=== PATIENT | female | born 1980 | race Caucasian/White ===

== ENCOUNTER 2018-05-26 08:43 | Day surgery (SDC) | payer MEDICARE, OTHER ==
[~2018-05-26] VITALS: Ht 175.3 cm; Wt 146.2 kg
[2018-05-26 09:41] VITALS: Ht 175.3 cm; Wt 146.2 kg
[2018-05-26] MEDS ORDERED: LORAZEPAM PO (09:48)
[2018-05-26] MEDS ORDERED: FLUOXETINE PO (09:48)
[2018-05-26] MEDS ORDERED: KEPPRA PO (09:48)
[2018-05-26] MEDS ORDERED: RISPERIDONE PO (09:48)
[2018-05-26] MEDS ORDERED: DOCUSATE SODIUM PO (09:48)
[2018-05-26] MEDS ORDERED: LEVOTHYROXINE PO (09:48)
[2018-05-26 10:04] VITALS: BP 158/67; PULSE 79; RESP 17
[2018-05-26] MEDS ORDERED: FENTAnyl 50 MCG/ML VIAL ONE (10:06)
[2018-05-26] MEDS ORDERED: LIDOCAINE 2% (SDV) 5 ML INJ ONE (10:06)
[2018-05-26] MEDS ORDERED: PROPOFOL 40 ML ONE (10:06)
[2018-05-26] MEDS ORDERED: PROPOFOL 200 MG INJ ONE (10:06)
--- NOTE | 2018-05-26 10:12 | PREAC ---
Date/Time of Note Date/Time of Note DATE: 05/26/18 TIME: 10:09 Anesthesia Eval and Record Evaluation Time Pre-Procedure Interview DATE: 05/26/18 TIME: 10:09 Age 38 Sex female NPO: 8 hrs Preoperative diagnosis DYSPEPSIA Planned procedure EGD WITH BIOPSIES Past Medical History Past Medical History: Includes Endo: Hypothyroid Pulm: Sleep Apnea, Home CPAP Neuro: Seizure disorder GI: Morbid obesity (BMI:47) Psych: Depression, Anxiety Surgery & Anesthesia Issues No known issue Meds Anticoagulation: No Beta Wilmer within 24 hr: No Reason Beta Wilmer not given: Pt. not on B-Wilmer Reported Medications [Lorazepam] No Conflict Check, PO 05/26/18 [Levothyroxine] No Conflict Check, PO 05/26/18 [Docusate Sodium] No Conflict Check, PO 05/26/18 [Risperidone] No Conflict Check, PO 05/26/18 [Fluoxetine] No Conflict Check, PO 05/26/18 [Keppra] No Conflict Check, PO 05/26/18 Meds reviewed: Yes Allergies Coded Allergies: No Known Allergy (Unverified , 05/26/18) Allergies Reviewed: Yes Labs/Studies Labs Reviewed: Reviewed by anesthesiologist test: N/A Pre-procedure Exam Airway: Adequate mouth opening, Adequate thyromental dist Mallampati: Mallampati II Teeth: Normal Lung: Normal Heart: Normal ASA Physical Status ASA physical status: 3 Emergency: None Planned Anesthetic General/MAC: MAC Planned Pain Management Parenteral pain med Pre-operative Attestations Prior to commencing anesthesia and surgery, the patient was re-evaluated, there was verification of: *The patient's identity *The results of appropriate recent lab work and preoperative vital signs *The above evaluation not changing prior to induction *Anesthetic plan, risk benefits, alternative and complications discussed with patient/family; questions answered; patient/family understands, accepts and wishes to proceed. Phi Galicia M.D. May 26, 2018 10:12
[2018-05-26] MEDS ORDERED: HYDROmorphONE 1 MG/5 ML IV SYRINGE IV PRN ×3 (10:30)
[2018-05-26] MEDS ORDERED: LABETALOL HCL 20MG INJ IV PRN (10:30)
[2018-05-26] MEDS ORDERED: EPHEDrine SULFATE 50 MG/5 ML SYG IV PRN (10:30)
[2018-05-26] MEDS ORDERED: MEPERIDINE 25 MG INJ IV PRN (10:30)
[2018-05-26] MEDS ORDERED: FENTAnyl 50 MCG/ML VIAL IV PRN ×3 (10:30)
[2018-05-26] MEDS ORDERED: IPRATROPIUM (NEB) 0.5 MG/2.5 ML AMP HHN PRN (10:30)
[2018-05-26] MEDS ORDERED: ALBUTEROL 0.083% (NEB) 2.5 MG/3 ML AMP HHN PRN (10:30)
[2018-05-26] MEDS ORDERED: OXYCODONE/ACETAMINOPHEN (5/325) TAB PO PRN ×2 (10:30)
[2018-05-26] MEDS ORDERED: MIDAZOLAM 1 MG/ML 2 ML INJ IV PRN (10:30)
[2018-05-26] MEDS ORDERED: ONDANSETRON 4 MG INJ IV PRN (10:30)
[2018-05-26] MEDS ORDERED: DIPHENHYDRAMINE 50 MG INJ IV PRN (10:30)
[2018-05-26] MEDS ORDERED: TRIMETHOBENZAMIDE 100 MG/ML VIAL IM PRN (10:30)
[2018-05-26] MEDS ORDERED: hydrALAzine 20 MG INJ IV PRN (10:30)
[2018-05-26 11:08] VITALS: BP 131/64; PULSE 76; RESP 18
== END 2018-05-26 12:27 | disposition home or self-care (01) ==
LOC: GIL 08:43
PROVIDERS: ATTEND Internal Medicine Gastroenterology
DX: K29.50 Unspecified chronic gastritis without bleeding (principal); K25.7 Chronic gastric ulcer without hemorrhage or perforation; K29.80 Duodenitis without bleeding; E03.9 Hypothyroidism, unspecified
CPT/HCPCS: 84703; 88305; 88312; J3010

== ENCOUNTER 2018-11-20 07:10 | Day surgery (SDC) | payer MEDICARE, OTHER ==
[~2018-11-20] VITALS: Ht 175.3 cm; Wt 147.7 kg
[~2018-11-20 07:10] MED LIST: DOCUSATE SODIUM PO; FLUO20CA22 PO; FLUOXETINE PO; KEPPRA PO; LEVO50TA7 PO; LEVOTHYROXINE PO; LORAZEPAM PO; RISP2TAB3 PO; RISPERIDONE PO; SPIR50TA PO; [UNRECOGNIZED DRUG - CODE] PO
--- OUTSIDE RECORDS SUMMARY | 2018-11-20 07:13 | XMS REPORT | Clinical Summary ---
Demographics [phone] rganization nino 89 Care Team Providers ce Comments NOTE: The information displayed by [facility] is extracted from the complete [facility] record and may not identify all current or past patient conditions. See bel ow for further instructions regarding Mental Health and [facility] patients.[facility] Allergies Bskldoe9Mb Reactions Drug Verdana4 Verdana4 Bd na4d d OR Active Active T AM 500 MG ctive XETINE day 20 MG ORAL TAB Active Problems ARMAAN LOOD LOSS Vawxuep2Fn Years Used ssed Jvjggiu0Tc Travel FseSmcdyby9p l Signs Aainape2Vm dana4d yyqoJxcdbni7d PM PST PM PST M PST PM PST PM PST n Index Plan of Treatment 1998 / ts Not on filefrom Last 3 Months Advance Directives Xamigre4Pl RepresentativeVerda na4d es InactivatedVerdana4 fwVwiwkai7k d omments FOR RECORDS PERTAINING TO PATIENTS WHO ARE OR HAVE BEEN ENROLLED IN A CHEMICAL D EPENDENCY/SUBSTANCE ABUSE PROGRAM PLEASE NOTE: Some of the enclosed informa tion may contain records from the patient's treatment in a substance abuse progr am that are protected by Federal confidentiality rules (42 CFR part 2). The [facility] rules prohibit you from making any further disclosure of this information un less further disclosure is expressly permitted by the written consent of the per son to whom it pertains or as otherwise permitted by 42 CFR part 2. A general au thorization for the release of medical or other information is NOT sufficient fo r this purpose. The Federal rules restrict any use of the information to crimina lly investigate or prosecute any alcohol or drug abuse patient.[facility]
[2018-11-20 08:10] VITALS: Ht 175.3 cm; Wt 147.7 kg
--- NOTE | 2018-11-20 08:37 | PREAC ---
Date/Time of Note Date/Time of Note DATE: 11/20/18 TIME: 08:36 Anesthesia Eval and Record Evaluation Time Pre-Procedure Interview DATE: 11/20/18 TIME: 08:36 Age 38 Sex female NPO: 8 hrs Preoperative diagnosis Gastric Ulcer Planned procedure EGD Past Medical History Past Medical History: Includes Endo: Hypothyroid Neuro: Seizure disorder, Other (mental retardation) GI: Obesity Psych: Anxiety Surgery & Anesthesia Issues No known issue Meds Anticoagulation: No Beta Wilmer within 24 hr: No Reason Beta Wilmer not given: Pt. not on B-Wilmer Reported Medications Levothyroxine Sodium* (Levothyroxine Sodium*) 50 Mcg Tablet, 50 MCG PO BEFORE BREAKFAST, #30 TAB 11/20/18 Spironolactone* (Aldactone*) 50 Mg Tablet, 50 MG PO DAILY, #30 TAB 11/20/18 Risperidone* (Risperidone*) 2 Mg Tablet, 2 MG PO DAILY, TAB 11/20/18 Fluoxetine Hcl* (Fluoxetine Hcl*) 20 Mg Capsule, 20 MG PO DAILY, CAP 11/20/18 Levetiracetam (Levetiracetam XR*) 750 Mg Tab.er.24h, 1500 MG PO DAILY, TAB 11/20/18 Discontinued Reported Medications [Lorazepam] No Conflict Check, PO 05/26/18 [Levothyroxine] No Conflict Check, PO 05/26/18 [Docusate Sodium] No Conflict Check, PO 05/26/18 [Risperidone] No Conflict Check, PO 05/26/18 [Fluoxetine] No Conflict Check, PO 05/26/18 [Keppra] No Conflict Check, PO 05/26/18 Meds reviewed: Yes Allergies Coded Allergies: No Known Allergy (Unverified , 05/26/18) Allergies Reviewed: Yes Labs/Studies Labs Reviewed: Reviewed by anesthesiologist test: Negative Studies: ECG (n/a), CXR (n/a) Pre-procedure Exam Airway: Adequate mouth opening, Adequate thyromental dist Mallampati: Mallampati II Teeth: Normal Lung: Normal Heart: Normal ASA Physical Status ASA physical status: 3 Emergency: None Planned Anesthetic General/MAC: MAC Planned Pain Management Parenteral pain med Pre-operative Attestations Prior to commencing anesthesia and surgery, the patient was re-evaluated, there was verification of: *The patient's identity *The results of appropriate recent lab work and preoperative vital signs *The above evaluation not changing prior to induction *Anesthetic plan, risk benefits, alternative and complications discussed with patient/family; questions answered; patient/family understands, accepts and wishes to proceed. CESIA BLISS MD Nov 20, 2018 08:37
[2018-11-20 08:40] VITALS: BP 99/52; PULSE 72; RESP 18
[2018-11-20] MEDS ORDERED: PROPOFOL 20 ML ONE (08:59)
--- NOTE | 2018-11-20 09:00 | PAC ---
Date/Time of Note Date/Time of Note DATE: 11/20/18 TIME: 08:59 Post-Anesthesia Notes Post-Anesthesia Note Last documented vital signs T: 98.0 Activity: WNL Respiratory function: WNL Cardiovascular function: WNL Mental status: Baseline Pain reasonably controlled: Yes Hydration appropriate: Yes Nausea/Vomiting absent: Yes CESIA BLISS MD Nov 20, 2018 09:00
[2018-11-20 09:28] VITALS: BP 105/59; RESP 18
== END 2018-11-20 11:47 | disposition home or self-care (01) ==
LOC: GIL 07:10
PROVIDERS: ATTEND Internal Medicine Gastroenterology
DX: K29.30 Chronic superficial gastritis without bleeding (principal)
CPT/HCPCS: 84703; 88305; 88312